=== PATIENT | male | born 1975 | race Caucasian/White ===

== ENCOUNTER 2019-06-03 07:57 | Emergency (ER) | payer SELFPAY ==
--- NOTE | 2019-06-03 08:20 | PHYS DOC ---
Adult General Chief Complaint Chief Complaint: COLD EXPOSURE HPI HPI Patient is a 43 year old male brought in by ambulance patient is homeless was walking around the last few hours just with a sweatshirt on he is from [facility] he wants to go back there he wants to go to a homeless [facility]. Augstín cullen feels pain in his hands and feet from the cold exposure no recent illnesses no fever no cough Review of Systems Review of Systems Constitutional: Denies fever or chills [] Eyes: Denies change in visual acuity, redness, or eye pain [] HENT: Denies nasal congestion or sore throat [] Respiratory: Denies cough or shortness of breath [] Cardiovascular: No additional information not addressed in HPI [] GI: Denies abdominal pain, nausea, vomiting, bloody stools or diarrhea [] : Denies dysuria or hematuria [] Musculoskeletal: Denies back pain or joint pain [] Integument: Denies rash or skin lesions [] All other systems were reviewed and found to be within normal limits, except as documented in this note. Allergies Allergies Allergies Coded Allergies Type Severity Reaction Last Updated Verified No Known Drug Allergies 06/03/19 No Physical Exam Physical Exam Constitutional: Well developed, well nourished, no acute distress, non-toxic appearance. [] HENT: Normocephalic, atraumatic, bilateral external ears normal, oropharynx alee st, no oral exudates, nose normal. [] Eyes: PERRLA, EOMI, conjunctiva normal, no discharge. [] Neck: Normal range of motion, no tenderness, supple, no stridor. [] Cardiovascular:Heart rate regular rhythm, no murmur [] Lungs & Thorax: Bilateral breath sounds clear to auscultation [] Abdomen: Bowel sounds normal, soft, no tenderness, no masses, no pulsatile masses. [] Skin: Warm, dry, no erythema, no rash. [] Back: No tenderness, no CVA tenderness. [] Extremities: hands and feet are both very cold to the touch but pulses are present sensation is intact capillary refill is just mildly delayed. Sensory function, no focal deficits noted. [] Psychologic: Affect normal, judgement normal, mood normal. [] EKG EKG [] Radiology/Procedures Radiology/Procedures [] Course & Med Decision Making Course & Med Decision Making Pertinent Labs and Imaging studies reviewed. (See chart for details) []Cold exposure patient's temperature is 97.9 see nurse's note for complete vitals a look pretty good. Patient does have some cold exposure but no signs of necrosis on clinical examination pulses are present patient is warmed up passively in the emergency room we will give him something to eat I've asked the nurses to arrange a cab transport to a local homeless [facility] Philipp Disclaimer Philipp Disclaimer This electronic medical record was generated, in whole or in part, using a voice recognition dictation system. Departure Departure Impression: Primary Impression: Cold exposure Disposition: 01 HOME, SELF-CARE Condition: STABLE Patient Instructions: Hypothermia-Brief ALEC IBARRA MD Jun 03, 2019 08:20
[2019-06-03 08:57] VITALS: BP 136/85
== END 2019-06-03 08:59 | disposition home or self-care (01) ==
LOC: ER 07:57
DX: T69.8XXA Other specified effects of reduced temperature, initial encounter (principal)
CPT/HCPCS: 99283